=== PATIENT | male | born 1955 | race Caucasian/White ===

== ENCOUNTER → 2019-02-17 13:03 | Outpatient (CLI) | payer BC, SELFPAY ==
[2019-02-17 15:44] LABS: Absolute Lymphocyte Count 1.08 X10^3/uL (0.83-4.51); Absolute Neutrophil Count 4.2 X10^3/uL (2.0-7.7); Basophil# 0.03 X10^3/uL; Basophil% 0.5 % (0-1); Eosinophil# 0.06 X10^3/uL; Hematocrit 42.1 % (40-54); Hemoglobin 13.6 g/dL (13.0-16.5); Lymphocyte # 1.08 X10^3/ul (4.0); Lymphocyte % 18.1 % (19-41); Mean Corp Hgb Conc 32.3 g/dL (32-36); Mean Corpuscular Hgb 30.6 pg (27.0-32.0); Mean Corpuscular Volume 94.8 fL (80-94); Mean Platelet Vol. 11.5 fl (6.2-12.0); Monocyte# 0.58 X10^3/uL; Monocyte% 9.7 % (0-10); NRBC Flagged by Analyzer 0 % (0-5); Neutrophil # 4.21 X10^3/uL (2.7-7.7); Neutrophil % 70.5 % (47-70); Platelet Count 182 K/mm3 (150-450); RBC Distribution Width CV 13.7 % (11.6-14.6); RBC Distribution Width SD 47.7 fl (35.1-43.9); Red Blood Count 4.44 M/mm3 (4.6-6.2)
[2019-02-17 15:58] LABS: AST(SGOT) 21 U/L (15-37); Alanine Aminotransfer ALT/SGPT 40 U/L (16-61); Albumin, Serum 3.8 g/dL (3.2-5.0); Alkaline Phosphatase 72 U/L (45-117); Anion Gap 8 (5-15); BUN 11 mg/dL (7-18); BUN/Creat Ratio 10.4 RATIO (10-20); Calcium,Total 8.8 mg/dL (8.5-10.1); Chloride 105 mmol/L (98-107); Cholesterol 182 mg/dL (200); Creatinine, Serum 1.06 mg/dL (0.70-1.30); EST Glomerular Filtration Rate 75 mL/min (>60); Est Glom Filt Rate - Afr Amer 91 mL/min (>60); Globulin 3.8 g/dL (2.2-4.2); Glucose 107 mg/dL (74-106); High Density Lipoprotein 42 mg/dL; PSA,Total - Annual Screen 2.02 ng/mL (0.00-4.00); Potassium 4.2 mmol/L (3.5-5.1); Protein, Total 7.6 g/dL (6.4-8.2); Sodium Level 139 mmol/L (136-145); Triglycerides 153 mg/dL; Very Low Density Lipoprotein 31 mg/dL (5-40)
[2019-02-17 16:10] LABS: Hemoglobin A1c 5.4 % (4.2-6.3)
== END ==
PROVIDERS: Visit Provider Family Medicine
DX: I10 Essential (primary) hypertension (principal); K50.90 Crohn's disease, unspecified, without complications; Z91.89 Other specified personal risk factors, not elsewhere classified; Z12.5 Encounter for screening for malignant neoplasm of prostate
CPT/HCPCS: 36415; 80053; 80061; 83036; 84153; 85025; G0103

== ENCOUNTER → 2019-03-30 20:28 | Outpatient (CLI) | payer BC, SELFPAY | PROVIDERS: Family Provider Family Medicine; PCP Family Medicine; Referring Provider Family Medicine; Visit Provider Family Medicine | DX: G47.33 Obstructive sleep apnea (adult) (pediatric) (principal) | CPT/HCPCS: 95811 ==

== ENCOUNTER → 2019-04-16 15:57 | Outpatient (CLI) | payer BC, SELFPAY ==
--- NOTE | 2019-04-16 16:02 | CT_ITS ---
STUDY: CT ABDOMEN AND PELVIS WITH CONTRAST REASON FOR EXAM: Male, 64 years old. Crohn's, colostomy, rectum removed RADIATION DOSAGE (If Supplied By Facility): CTDIvol = ( 19.79 ) mGy, DLP = ( 2030.83 ) mGycm TECHNIQUE: Transaxial images were obtained from the dome of the diaphragm to the symphysis pubis without oral contrast. Oral and amp;amp; IV Gastrografin and amp;amp; 100mL Isovue-370 100 was administered. Sagittal and coronal images were reconstructed. Individualized dose optimization techniques were used for this CT. COMPARISON: None. FINDINGS: The visualized lung bases are unremarkable. The visualized portions of the heart are within normal limits. There is decreased attenuation of the liver consistent with steatosis. The gallbladder is contracted. Normal spleen. Normal pancreas. Normal bilateral adrenal glands. Normal right kidney. Normal left kidney. Normal visualized stomach. Normal small intestine. Left lower quadrant colostomy. The appendix is visualized and appears normal. Normal abdominal aorta. Normal inferior vena cava. Normal retroperitoneum. Normal urinary bladder. Normal abdominal wall. Normal osseous structures. CT/Abdomen/Pelvis WITH Contrast IMPRESSION: No evidence of fistula, abscess, or bowel obstruction. Electronically Signed: Jl Anaya MD at 17:37 EDT Tel , Service support ,
[2019-04-16 16:26] LABS: CREATININE FINGERSTICK 1.2 mg/dL (0.70-1.30)
== END ==
PROVIDERS: Family Provider Family Medicine; PCP Family Medicine; Referring Provider Internal Medicine Gastroenterology; Visit Provider Internal Medicine Gastroenterology
DX: K50.90 Crohn's disease, unspecified, without complications (principal); Z01.812 Encounter for preprocedural laboratory examination
CPT/HCPCS: 74177; Q9967

== ENCOUNTER → 2019-05-26 09:00 | Outpatient (CLI) | payer BC, SELFPAY | PROVIDERS: Family Provider Family Medicine; PCP Family Medicine; Referring Provider Family Medicine; Visit Provider Family Medicine | DX: G47.33 Obstructive sleep apnea (adult) (pediatric) (principal) ==

== ENCOUNTER → 2020-02-19 10:19 | Outpatient (CLI) | payer BC, SELFPAY ==
[2020-02-19 12:27] LABS: Absolute Lymphocyte Count 1.28 X10^3/uL (0.83-4.51); Basophil# 0.03 X10^3/uL; Basophil% 0.5 % (0-1); Eosinophil# 0.07 X10^3/uL; Eosinophils% 1.2 % (0-5); Hematocrit 43.3 % (40-54); Hemoglobin 13.9 g/dL (13.0-16.5); Lymphocyte # 1.28 X10^3/ul (4.0); Lymphocyte % 21.5 % (19-41); Mean Corp Hgb Conc 32.1 g/dL (32-36); Mean Corpuscular Hgb 31.3 pg (27.0-32.0); Mean Corpuscular Volume 97.5 fL (80-94); Mean Platelet Vol. 11.8 fl (6.2-12.0); Monocyte# 0.59 X10^3/uL; Monocyte% 9.9 % (0-10); NRBC Flagged by Analyzer 0 % (0-5); Neutrophil # 3.96 X10^3/uL (2.7-7.7); Neutrophil % 66.6 % (47-70); Platelet Count 186 K/mm3 (150-450); RBC Distribution Width CV 13.4 % (11.6-14.6); RBC Distribution Width SD 47.7 fl (35.1-43.9); Red Blood Count 4.44 M/mm3 (4.6-6.2)
[2020-02-19 12:45] LABS: AST(SGOT) 30 U/L (15-37); Alanine Aminotransfer ALT/SGPT 53 U/L (16-61); Albumin, Serum 3.8 g/dL (3.2-5.0); Alkaline Phosphatase 67 U/L (45-117); Anion Gap 7 (5-15); BUN 14 mg/dL (7-18); BUN/Creat Ratio 14.3 RATIO (10-20); Calcium,Total 8.7 mg/dL (8.5-10.1); Chloride 103 mmol/L (98-107); Cholesterol 188 mg/dL (200); Creatinine, Serum 0.98 mg/dL (0.70-1.30); EST Glomerular Filtration Rate 83 mL/min (>60); Est Glom Filt Rate - Afr Amer 100 mL/min (>60); Globulin 3.9 g/dL (2.2-4.2); Glucose 117 mg/dL (74-106); High Density Lipoprotein 41 mg/dL; PSA,Total - Annual Screen 2.34 ng/mL (0.00-4.00); Potassium 4.1 mmol/L (3.5-5.1); Protein, Total 7.7 g/dL (6.4-8.2); Sodium Level 138 mmol/L (136-145); Triglycerides 143 mg/dL; Very Low Density Lipoprotein 29 mg/dL (5-40)
[2020-02-19 12:46] LABS: Hemoglobin A1c 5.3 % (3.8-5.6)
== END ==
PROVIDERS: PCP Family Medicine; Visit Provider Family Medicine
DX: K50.90 Crohn's disease, unspecified, without complications (principal); I10 Essential (primary) hypertension; K21.9 Gastro-esophageal reflux disease without esophagitis; Z83.3 Family history of diabetes mellitus
CPT/HCPCS: 36415; 80053; 80061; 83036; 84153; 85025; G0103

== ENCOUNTER → 2020-04-15 14:12 | Outpatient (CLI) | payer BC, SELFPAY ==
[2020-04-15 17:43] LABS: Hematocrit 44.3 % (40-54); Hemoglobin 14.1 g/dL (13.0-16.5); Mean Corp Hgb Conc 31.8 g/dL (32-36); Mean Corpuscular Volume 100.5 fL (80-94); Mean Platelet Vol. 11.7 fl (6.2-12.0); Platelet Count 174 K/mm3 (150-450); RBC Distribution Width CV 13.2 % (11.6-14.6); RBC Distribution Width SD 48.9 fl (35.1-43.9); Red Blood Count 4.41 M/mm3 (4.6-6.2); White Blood Count 5.5 K/mm3 (4.4-11.0)
[2020-04-15 17:50] LABS: CRP 4.44 mg/L (0.0-3.0)
== END ==
PROVIDERS: PCP Family Medicine; Referring Provider Internal Medicine Gastroenterology; Visit Provider Internal Medicine Gastroenterology
DX: K50.90 Crohn's disease, unspecified, without complications (principal)
CPT/HCPCS: 36415; 85027; 86140

== ENCOUNTER → 2022-03-02 | Outpatient (CLI) | payer MEDICARE, BC, SELFPAY ==
[2022-03-02 10:05] LABS: Absolute Lymphocyte Count 1.74 X10^3/uL (0.83-4.51); Absolute Neutrophil Count 4.4 X10^3/uL (2.0-7.7); Basophil# 0.03 X10^3/uL; Basophil% 0.4 % (0-1); Eosinophil# 0.12 X10^3/uL; Eosinophils% 1.7 % (0-5); Hematocrit 41.5 % (40-54); Hemoglobin 14.1 g/dL (13.0-16.5); Lymphocyte # 1.74 X10^3/ul (0.83-4.51); Lymphocyte % 25.1 % (19-41); Mean Corpuscular Hgb 31.3 pg (27.0-32.0); Monocyte# 0.69 X10^3/uL; Monocyte% 9.9 % (0-10); NRBC Flagged by Analyzer 0 % (0-5); Neutrophil # 4.35 X10^3/uL (2.7-7.7); Neutrophil % 62.8 % (47-70); Platelet Count 180 K/mm3 (150-450); RBC Distribution Width CV 13.1 % (11.6-14.6); RBC Distribution Width SD 43.7 fl (35.1-43.9); Red Blood Count 4.51 M/mm3 (4.6-6.2); White Blood Count 6.9 K/mm3 (4.4-11.0)
[2022-03-02 10:32] LABS: Hemoglobin A1c 6.6 % (3.8-5.6)
[2022-03-02 10:36] LABS: ALB/GLOB Ratio 0.9 RATIO (0.9-2.4); AST(SGOT) 25 U/L (15-37); Alanine Aminotransfer ALT/SGPT 49 U/L (16-61); Albumin, Serum 3.3 g/dL (3.2-5.0); Alkaline Phosphatase 67 U/L (45-117); Anion Gap 6 (5-15); BUN 16 mg/dL (7-18); BUN/Creat Ratio 15.8 RATIO (10-20); Calcium,Total 8.5 mg/dL (8.5-10.1); Chloride 107 mmol/L (98-107); Cholesterol 168 mg/dL (200); Creatinine, Serum 1.01 mg/dL (0.70-1.30); EST Glomerular Filtration Rate 79 mL/min (>60); Est Glom Filt Rate - Afr Amer 95 mL/min (>60); Globulin 3.7 g/dL (2.2-4.2); Glucose 140 mg/dL (74-106); High Density Lipoprotein 34 mg/dL; PSA,Total - Annual Screen 1.84 ng/mL (0.00-4.00); Potassium 4.1 mmol/L (3.5-5.1); Sodium Level 139 mmol/L (136-145); Triglycerides 237 mg/dL; Very Low Density Lipoprotein 47 mg/dL (5-40)
== END | disposition home or self-care (01) ==
PROVIDERS: PCP Family Medicine; Referring Provider Family Medicine; Visit Provider Family Medicine
DX: K50.90 Crohn's disease, unspecified, without complications (principal); I10 Essential (primary) hypertension; K21.9 Gastro-esophageal reflux disease without esophagitis; Z83.3 Family history of diabetes mellitus; Z12.5 Encounter for screening for malignant neoplasm of prostate; E78.5 Hyperlipidemia, unspecified
CPT/HCPCS: 36415; 80053; 80061; 83036; 84153; 85025; G0103

== ENCOUNTER 2022-09-18 09:00 | Outpatient (RCR) | payer MEDICARE, BC, SELFPAY ==
--- NOTE | 2022-07-24 10:17 | HP.PTEVAL ---
Patient's Visit Information GREG KEARNS III is a 67 year old M referred to Physical Therapy by Dr. Maria Luisa Rendon MD with a diagnosis of R rotator cuff strain. Date of Evaluation: 07/24/22 Physical Therapist: Israel Jon, PT, ATC - Visit Plan Frequency: 2-3x /Week Duration: 3-6 weeks Plan: L shoulder strengthening (rotator cuff), scap stab ex's, UBE, and HEP - Subjective Pt reports he was bowling one month ago when his thumb stuck in the ball upon rolling it. Pt reports he experience a severe pain in his R Upper trap at that time. Pt reports the pain was sharp in nature. Pt reports the pain has dpytw5fmg over the last week. Pt is retired at this time. Pt is a computer applications engineer. Pt reports he has a hard time getting to sleep secondary to his shoulder pain. No R UE tingling or numbness at this time. Pt reports lifting overhead causes in creased pain at this time. Pt has not had any diagnostic tests at this time. 0/10 pain while sitting at rest, 3/10 pain at worst (trying to reach for his electric recliner remote pad) - Pain R shoulder Pain Intensity (Out of 10): 0 Pain Intensity Range: 3 - Objective Neuro: B UE sensation is WNL to light touch. B bicipital reflex= 2/3. ROM: B UE's are WNL when compared bilaterally with exception to abduction which is minimally limited. Pt is limited with cervical spine L rot and sidebend are minimally limited. Pt experienced minor increase retraction and protraction in c/s. MMT: R shoulder is grossly 4/5 throughout while L shoulder is 5/5 throughout. Palpation: Pt is sore on the posterior aspect of his R shoulder. No obvious deformity at this time. Special testing: Pos empty can and HK test for impingement - Balance/Special Test Scores Quick DASH Score: 15.9075 - Goals Goal 1:: Decrease R shoulder pain x 50% to aid with sleep Goal Time Frame: 4-6 Weeks Goal 2:: Increase R shoulder ROM to WNL to be equal with L shoulder Goal Time Frame: 4-6 Weeks Goal 3:: Increase R shoulder strength x 1 grade to aid with return to bowling without limitation Goal Time Frame: 4-6 Weeks Goal 4:: I with HEP Goal Time Frame: 4-6 Weeks - Rehabilitation Potential Physical Therapy Diagnosis: Pt has R shoulder pain, weakness, and limited ROM secondary to R shoulder rotator cuff strain Rehabilitation Potential: Good - Anticipated Interventions Patient/Client Instruction: Educate patient on: Condition, Plan of Care For the Purpose of:: To improve self management Therapeutic Exercise to Include: Strength training, Endurance training, Scapular Strength/Stabilization For the Purpose of:: To decrease pain, To increase ROM, To improve muscle performance and motor function Cryotherapy (ice pack, ice massage): Yes For the Purpose of:: To decrease pain Thank you for the opportunity to evaluate your patient. For Medicare and Medicare HMO plans, please review the plan of care and approve it. It will need to be FAXED BACK to us at [phone] for Medicare purposes. For Medicare only, by signing this I certify the plan of care. Please let me know if there are questions or concerns regarding this plan of care. Physician Signature: Date:
--- NOTE | 2022-08-21 09:32 | HP.PTREVAL ---
Dr. Maria Luisa Rendon MD, It has been my pleasure to treat GREG KEARNS III over the last 8 visits for R rotator cuff strain. Please see the progress note below for an update on the physical therapy plan of care! Subjective: I feel good, but I havent even tried bowling yet Objective/Function: R shoulder pain is consistently 1/10. R shoulder ROM: flex and abd= 140, ER= 65 degrees. R shoulder MMT: flex and abd= 5/5, ER and IR= 4/5. Pt is progressing well with strength and ROM, still lacks strength with IR and ER Plan Plan: Follow up or discharge in 1 month Balance/Gait/Functional tests - Balance/Special Test Scores Quick DASH Score: 4.5450 Goals Goal 1:: Decrease R shoulder pain x 50% to aid with sleep Goal Time Frame: 4-6 Weeks Goal Progress: Goal Met Goal 2:: Increase R shoulder ROM to WNL to be equal with L shoulder Goal Time Frame: 4-6 Weeks Goal Progress: Goal Met Goal 3:: Increase R shoulder strength x 1 grade to aid with return to bowling without limitation Goal Time Frame: 4-6 Weeks Goal Progress: Progressing Goal 4:: I with HEP Goal Time Frame: 4-6 Weeks Goal Progress: Goal Met Anticipated Interventions Patient/Client Instruction: Educate patient on: Condition, Plan of Care For the Purpose of:: To improve self management Therapeutic Exercise to Include: Strength training, Endurance training, Scapular Strength/Stabilization For the Purpose of:: To decrease pain, To increase ROM, To improve muscle performance and motor function Cryotherapy (ice pack, ice massage): Yes For the Purpose of:: To decrease pain Please do not hesitate to contact me at [phone] by phone or if you have questions or concerns regarding this new plan of care! Sincerely, Israel Jon, PT, ATC
--- NOTE | 2022-09-18 09:31 | HP.PTREVAL ---
Dr. Maria Luisa Rendon MD, It has been my pleasure to treat GREG KEARNS III over the last 9 visits for R rotator cuff strain. Please see the progress note below for an update on the physical therapy plan of care! Subjective: I barely have any pain now Objective/Function: R shoulder pain 07/24. No sleep limitations at this time secondary to pain. R shoulder ROM is WNL compared bilaterally to L shoulder. R shoulder MMT: 5/5 throughout. Pt is I with HEP. Rx goals achieved Plan Plan: Discharge to [facility] Balance/Gait/Functional tests - Balance/Special Test Scores Quick DASH Score: 2.2725 Goals Goal 1:: Decrease R shoulder pain x 50% to aid with sleep Goal Time Frame: 4-6 Weeks Goal Progress: Goal Met Goal 2:: Increase R shoulder ROM to WNL to be equal with L shoulder Goal Time Frame: 4-6 Weeks Goal Progress: Goal Met Goal 3:: Increase R shoulder strength x 1 grade to aid with return to bowling without limitation Goal Time Frame: 4-6 Weeks Goal Progress: Goal Met Goal 4:: I with HEP Goal Time Frame: 4-6 Weeks Goal Progress: Goal Met Anticipated Interventions Patient/Client Instruction: Educate patient on: Condition, Plan of Care For the Purpose of:: To improve self management Therapeutic Exercise to Include: Strength training, Endurance training, Scapular Strength/Stabilization For the Purpose of:: To decrease pain, To increase ROM, To improve muscle performance and motor function Cryotherapy (ice pack, ice massage): Yes For the Purpose of:: To decrease pain Please do not hesitate to contact me at [phone] by phone or if you have questions or concerns regarding this new plan of care! Sincerely, Israel Jon, PT, ATC
--- NOTE | 2022-09-18 09:32 | HP.PTDCSUM ---
It has been my pleasure to treat GREG KEARNS III referred by Dr. Maria Luisa Rendon MD, with the diagnosis of R rotator cuff strain for a total of 9 visit(s). Discharge Date: Please see the following information for a summary of their discharge status. Subjective: I barely have any pain now R shoulder Pain Intensity (Out of 10): 1 % Improvement: 80 Objective/Function: R shoulder pain /10. No sleep limitations at this time secondary to pain. R shoulder ROM is WNL compared bilaterally to L shoulder. R shoulder MMT: 5/5 throughout. Pt is I with HEP. Rx goals achieved Goal 1:: Decrease R shoulder pain x 50% to aid with sleep Goal Progress: Goal Met Goal 2:: Increase R shoulder ROM to WNL to be equal with L shoulder Goal Progress: Goal Met Goal 3:: Increase R shoulder strength x 1 grade to aid with return to bowling without limitation Goal Progress: Goal Met Goal 4:: I with HEP Goal Progress: Goal Met Plan: Discharge to HEP If there are questions or concerns regarding this patient's physical therapy, please feel free to call me at [phone]. Thank you for the referral of this patient. Sincerely, Israel Jon, PT, ATC Balance/Gait/Functional tests - Balance/Special Test Scores Quick DASH Score: 2.2725
== END 2022-09-18 14:28 | disposition home or self-care (01) ==
LOC: PT 09:00
PROVIDERS: PCP Family Medicine; Referring Provider Family Medicine; Visit Provider Family Medicine
DX: M75.81 Other shoulder lesions, right shoulder
CPT/HCPCS: 97110; 97161; 97164

== ENCOUNTER → 2023-03-06 | Outpatient (CLI) | payer MEDICARE, BC, SELFPAY ==
[2023-03-06 09:44] LABS: Absolute Lymphocyte Count 1.51 X10^3/uL (0.83-4.51); Absolute Neutrophil Count 3.1 X10^3/uL (2.0-7.7); Basophil# 0.04 X10^3/uL; Basophil% 0.8 % (0-1); Eosinophil# 0.17 X10^3/uL; Eosinophils% 3.2 % (0-5); Hematocrit 41.8 % (40-54); Hemoglobin 14.1 g/dL (13.0-16.5); Lymphocyte # 1.51 X10^3/ul (0.83-4.51); Lymphocyte % 28.4 % (19-41); Mean Corp Hgb Conc 33.7 g/dL (32-36); Mean Corpuscular Hgb 31.3 pg (27.0-32.0); Mean Corpuscular Volume 92.7 fL (80-94); Mean Platelet Vol. 10.9 fl (6.2-12.0); Monocyte# 0.52 X10^3/uL; Monocyte% 9.8 % (0-10); NRBC Flagged by Analyzer 0 % (0-5); Neutrophil # 3.07 X10^3/uL (2.7-7.7); Neutrophil % 57.6 % (47-70); Platelet Count 180 K/mm3 (150-450); RBC Distribution Width CV 13.4 % (11.6-14.6); RBC Distribution Width SD 45.8 fl (35.1-43.9); Red Blood Count 4.51 M/mm3 (4.6-6.2); White Blood Count 5.3 K/mm3 (4.4-11.0)
[2023-03-06 10:09] LABS: Hemoglobin A1c 6.6 % (3.8-5.6)
[2023-03-06 10:14] LABS: Microalbumin,Random Urine 7.9 mg/L (NO RANGE EST.); Microalbumin:Creatinine Ratio 6.3 mg/g CRE (<30 mg/g CRE)
[2023-03-06 10:22] LABS: AST(SGOT) 27 U/L (15-37); Alanine Aminotransfer ALT/SGPT 52 U/L (16-61); Albumin, Serum 3.4 g/dL (3.2-5.0); Alkaline Phosphatase 67 U/L (45-117); Anion Gap 5 (5-15); BUN 12 mg/dL (7-18); BUN/Creat Ratio 12.6 RATIO (10-20); Calcium,Total 8.9 mg/dL (8.5-10.1); Chloride 106 mmol/L (98-107); Cholesterol 190 mg/dL (200); Creatinine, Serum 0.95 mg/dL (0.70-1.30); EST Glomerular Filtration Rate 84 mL/min (>60); Est Glom Filt Rate - Afr Amer 102 mL/min (>60); Globulin 3.4 g/dL (2.2-4.2); Glucose 142 mg/dL (74-106); High Density Lipoprotein 40 mg/dL; Potassium 4.2 mmol/L (3.5-5.1); Protein, Total 6.8 g/dL (6.4-8.2); Sodium Level 139 mmol/L (136-145); Triglycerides 220 mg/dL; Very Low Density Lipoprotein 44 mg/dL (5-40)
== END | disposition home or self-care (01) ==
PROVIDERS: PCP Family Medicine; Referring Provider Student in an Organized Health Care Education/Training Program; Visit Provider Student in an Organized Health Care Education/Training Program
DX: Z01.810 Encounter for preprocedural cardiovascular examination (principal); K50.90 Crohn's disease, unspecified, without complications; E11.9 Type 2 diabetes mellitus without complications; Z01.818 Encounter for other preprocedural examination; I10 Essential (primary) hypertension; K21.9 Gastro-esophageal reflux disease without esophagitis; E78.5 Hyperlipidemia, unspecified; K76.0 Fatty (change of) liver, not elsewhere classified
CPT/HCPCS: 36415; 80053; 80061; 82043; 82570; 83036; 85025; 93005

== ENCOUNTER → 2024-04-30 | Outpatient (CLI) | payer MEDICARE, BC, SELFPAY ==
[2024-04-30 12:24] LABS: Absolute Lymphocyte Count 1.21 X10^3/uL (0.83-4.51); Absolute Neutrophil Count 4.5 X10^3/uL (2.0-7.7); Basophil# 0.04 X10^3/uL; Basophil% 0.6 % (0-1); Eosinophils% 1.5 % (0-5); Hematocrit 40.6 % (40-54); Hemoglobin 13.4 g/dL (13.0-16.5); Lymphocyte # 1.21 X10^3/ul (0.83-4.51); Lymphocyte % 18.6 % (19-41); Mean Corpuscular Hgb 30.4 pg (27.0-32.0); Mean Corpuscular Volume 92.1 fL (80-94); Mean Platelet Vol. 11.1 fl (6.2-12.0); Monocyte# 0.67 X10^3/uL; Monocyte% 10.3 % (0-10); NRBC Flagged by Analyzer 0 % (0-5); Neutrophil # 4.46 X10^3/uL (2.7-7.7); Neutrophil % 68.7 % (47-70); Platelet Count 184 K/mm3 (150-450); RBC Distribution Width CV 13.5 % (11.6-14.6); RBC Distribution Width SD 45.8 fl (35.1-43.9); Red Blood Count 4.41 M/mm3 (4.6-6.2); White Blood Count 6.5 K/mm3 (4.4-11.0)
[2024-04-30 12:39] LABS: Microalbumin:Creatinine Ratio 12.4 mg/g CRE (<30 mg/g CRE)
[2024-04-30 12:53] LABS: ALB/GLOB Ratio 0.9 RATIO (0.9-2.4); AST(SGOT) 28 U/L (15-37); Alanine Aminotransfer ALT/SGPT 50 U/L (16-61); Albumin, Serum 3.4 g/dL (3.2-5.0); Alkaline Phosphatase 80 U/L (45-117); Anion Gap 7 (5-15); BUN 17 mg/dL (7-18); BUN/Creat Ratio 16.2 RATIO (10-20); Chloride 108 mmol/L (98-107); Cholesterol 168 mg/dL (200); Creatinine, Serum 1.05 mg/dL (0.70-1.30); EST Glomerular Filtration Rate 75 mL/min (>60); Est Glom Filt Rate - Afr Amer 91 mL/min (>60); Globulin 3.8 g/dL (2.2-4.2); Glucose 170 mg/dL (74-106); High Density Lipoprotein 46 mg/dL; Potassium 4.3 mmol/L (3.5-5.1); Protein, Total 7.2 g/dL (6.4-8.2); Sodium Level 140 mmol/L (136-145); Triglycerides 124 mg/dL; Very Low Density Lipoprotein 25 mg/dL (5-40)
== END | disposition home or self-care (01) ==
LOC: BFHLAB 09:09
PROVIDERS: PCP Family Medicine; Referring Provider Family Medicine; Visit Provider Family Medicine
DX: K50.90 Crohn's disease, unspecified, without complications (principal); E11.9 Type 2 diabetes mellitus without complications; I10 Essential (primary) hypertension; K21.9 Gastro-esophageal reflux disease without esophagitis; E78.5 Hyperlipidemia, unspecified; K76.0 Fatty (change of) liver, not elsewhere classified
CPT/HCPCS: 36415; 80053; 80061; 82043; 82570; 85025

== ENCOUNTER 2024-11-12 06:25 | Day surgery (SDC) | payer MEDICARE, BC, SELFPAY ==
--- NOTE | 2024-11-11 | MISC_PTH ---
PATIENT: GREG KEARNS III LOC: [facility] – [place] U#:[id number] AGE/SX: 69/M ROOM: RE11/12/[address]: Dr. Jonas Larsen MD : 1955 BED: DIS: 11/12/2024 SPEC #: [id number] RECD: 11/12/24 10:35 STATUS: KORY RUANO #: [id number] JOVANNY: 11/11/24 00:[address]: Jonas Larsen DEPT: SURGICAL PATHOLOGY RECD BY: Joselito Echavarria ENTERED: 11/12/24 10:38 SP TYPE: MISC BLANCA DR: Dr. Maria Luisa Rendon MD Tissues: A - Nail of finger, NOS Procedures: Surgery Specimen Level I Special Stain Group I GMS Stain (control) HEADER OPERATION: Excision nailbed deformity with closure, thumb PRE-OP DIAGNOSIS: Finger pain, right, acquired deformity of nail of finger, secondary to trauma TISSUE SUBMITTED: A- Right ectoptic nail tissue MICROSCOPIC DIAGNOSIS A. Right nail, ectopic tissue, excision: * Nail plate consistent with ectopic nail - see Comment. * A PASD stain is negative for fungal organisms. COMMENT Selected slides/images were reviewed in intradepartmental consultation by Dr Katina Morris (dermatopathology division, [facility]). MICROSCOPIC DESCRIPTION Slides are reviewed. All matched controls reacted appropriately. These tests were developed and their performance characteristics determined by [facility]. They may not have been cleared or approved by the U.S. Food and Drug Administration. The FDA has determined that such clearance or approval is not necessary.? The above immunohistochemical/dualISH?markers are ordered and reviewed by the Pathologist. GROSS DESCRIPTION A. Received in formalin in a container labeled with the patient's name, date of , and right ectopic nail tissue is an unoriented and irregular fragment of dhaliwal possible skin measuring 0.8 x 0.3 cm with a depth of 0.5 cm. The possible epidermis exhibits a 0.3 x 0.1 x 0.1 cm nodule, possibly consistent with a small portion of nail. This abuts the peripheral margin. The remaining skin is wrinkled, but otherwise unremarkable. The deep margin is inked green, and it is trisected to reveal that the possible nail is titus and softened, confined to the epidermis. Submitted entirely in A1. [facility] 11-12-2024 CPT:95042, 24124
[2024-11-12 06:50] VITALS: BP 145/78; PULSE 62; RESP 16; TEMP 36.6; O2SAT 97; BMI 28.3
[2024-11-12] MEDS: Clindamycin HCl 150 MG Capsule 450 MG PO (06:56)
[2024-11-12 07:21] VITALS: BP 115/70; BP 132/79; O2SAT 94; O2SAT 95; O2SAT 96; O2SAT 97
--- NOTE | 2024-11-12 07:36 | PCM.HP.STD ---
HPI - General HPI Narrative Reese Hercules is a delightful 69-year-old male with history of type 2 diabetes (A1c of 7.3) as well as Crohn's disease (has an ostomy, does not take any immunosuppressants) who presents today for nail deformity on the right thumb secondary to a trauma from 2 decades ago. Patient reports that he had a laceration/nailbed injury on the right thumb that was repaired over 20 years ago. He has had a nail deformity ever since on the radial side of his thumb. As the nail grows in this area, it catches on things and becomes irritated and red and painful. He is not a smoker. No personal or family history of bleeding or clotting problems. Current Encounter (DATE OF SURGERY H&P UPDATE): I saw and examined the patient this morning in pre-operative holding. We discussed risks and benefits of today's surgery and they would like to proceed. NO CHANGE in health history since last seen and evaluated. Ready to proceed with surgery. [facility] Medical History Kidney stone Osteopenia GERD (gastroesophageal reflux disease) Hypertension Gastrointestinal problem Diabetes History of blood transfusion Bone fracture Anemia Home Medications ?Medication ?Instructions ?Recorded ?Last Taken ?Type flaxseed oil 1,000 mg capsule 1,000 mg PO QDAY 11/10/24 Unknown History lisinopril 20 mg tablet 20 mg PO QDAY 11/10/24 11/12/24 06:00 History multivitamin with minerals-folic 1 tab PO DAILY 11/10/24 Unknown History acid 200 mcg chewable tablet omeprazole 40 mg capsule,delayed 40 mg PO QDAY 11/10/24 Unknown History release sitagliptin phosphate 50 mg tablet 50 mg PO QDAY 11/10/24 Unknown History (Januvia) triamcinolone acetonide 55 mcg 2 spray intranasal QDAY 11/10/24 11/12/24 06:00 History nasal spray aerosol (Nasacort) Allergy/AdvReac Type Severity Reaction Status Date / Time Penicillins (PCN) Allergy Mild NEEDS Verified 11/12/24 06:47 FOLLOW-UP trovafloxacin (From Trovan) Allergy Mild Other Verified 11/12/24 06:47 Family History Sister Diabetes Mother Diabetes Father Heart disease Surgical History History of colectomy Social History Smoking Status: Never smoker alcohol intake: current substance use type: does not use additional social history: pt denies using aspirin and ibuprofen Vital Signs Vital Signs Vital Signs: 11/12/24 06:50 11/12/24 06:50 Temperature 97.8 F Temperature Source Temporal Pulse Rate 62 Respiratory Rate 16 Respiratory Pattern Normal Blood Pressure 145/78 H Blood Pressure Mean 100 Blood Pressure Source Monitor Blood Pressure Position Sitting Blood Pressure Location Left Arm Pulse Ox 97 Oxygen Delivery Method Room Air Weight Weight: 197 lb Body Mass Index (BMI) 28.3 Physical Exam Narrative R Upper Extremity Inspection: Small spicule of apparent nail growth from the perionychium on the radial side of the thumb. No drainage or signs of infection. There is a scar immediately adjacent and proximal to the apparent nail. Palpation: Area is tender to palpation where there is apparent nail growth. Motor: Able to bend and extend all MP, PIP, and DIP joints. Sensory: Intact to light touch on the radial and ulnar borders. Vascular: Finger tips are warm and well perfused with <2 second capillary refill. Assessment & Plan Assessment/Plan (1) Acquired deformity of nail of finger: PLAN: I talked to the patient about removal of the ectopic nailbed tissue that is growing the nail (germinal matrix) in this location. This would require excision of this area followed by either wound care or closure. Patient understands the risks of wound healing problems, bleeding, infection, damage to surrounding structures, failure to obtain the desired result and return to the nail, as well as nail deformities in the main nailbed of the thumb. He would like to proceed with excision. He understands that his diabetes needs to continue to be under control so as to mitigate the risks of wound healing complications. He is accepting of the risks and would like to proceed. Plan for excision of ectopic nail tissue with closure under local in the operating room. CPT codes for insurance prior authorization are as follows: [id number], [id number] INTERVAL H&P PLAN, DATE OF SURGERY: We will proceed with surgery today.
--- NOTE | 2024-11-12 07:49 | OP.PCM_ITS ---
Operative Report (Standard) Operative Information Date of Procedure: 11/12/24 Pre-Operative Diagnosis: Right thumb nailbed deformity Post-Operative Diagnosis: Same Surgery/Procedure Performed: 1) Excision of right thumb ectopic nailbed deformity (radial side, perionychium), 0.2 x 0.5 cm (CPT: 02002) 2) Intermediate closure right thumb wound, 0.5 cm (CPT: 47017) centrifugal operator: No Type of Anesthesia: Local (6 cc of 50-50 mixture of 1% lidocaine and 0.25% Marcaine) RN Documented Start/Stop Times: Operation Date: 11/12/24 07:30 Case Time Into Pre-Op 11/12/24 06:49 Into Room 11/12/24 07:38 Procedure Start 11/12/24 07:54 Procedure End 11/12/24 08:06 Out of Room 11/12/24 08:11 Into Phase II Recovery 11/12/24 08:18 Out of Phase II 11/12/24 08:32 Anesthesia End Procedure Start Time: 07:54 Procedure Stop Time: 08:06 Select all DRAINS/GRAFTS/IMPLANTS that apply: None Estimated Blood Loss: Minimal Specimen collected: Yes Description of specimen(s) removed: Ectopic nail that was excised Description of surgery: Indications: Patient is a 69-year-old male with ectopic nail growth and nail deformity secondary to trauma. Presents today for excision and closure. I talked him about the risks, benefits, and alternatives to surgery, including infection, damage to surrounding structures, failure to obtain desired result, recurrence of the nail deformity, and need for revision. He elected to proceed with the procedure. Procedure details: Patient was correctly identified in preoperative holding and marked. He was ta derrek back to the operating room where he was administered local anesthesia as above-noted local solution was injected. He was prepped and draped in sterile fashion. All proper timeouts were performed. A turnicot was applied with care taken to remove at the end of the case. In the area of ectopic nail growth/deformity on the radial side of the thumb, a 15 blade scalpel was used to excise the skin and area of ectopic nail tissue full-thickness down to the distal phalanx bone in an ellipse that measured 0.2 x 0.5 cm. This was sent to pathology. The base of the wound was debrided with a curette to remove all other ectopic nail tissue, with extensive cleaning and removal of particulate matter to debride the area and prevent nail regrowth. The wound was then cauterized with bipolar electrocautery (turnicot removed). The wound was irrigated with copious amounts normal saline. Given that there was extensive particulate matter removal (ectopic nail debris and extensive cleaning) with exposure of the underlying distal phalanx bone, an intermediate closure was indicated that was 0.5 cm. This was performed with a 4-0 nylon interrupted suture. A Band-Aid was applied. Patient tolerated the procedure well. He was taken to the PACU in stable condition. Postoperative plan: Follow-up in 1 week for examination of the wound bed and likely suture removal and to review pathology. Plan for 1 week of doxycycline. Surgical Findings: Ectopic nail tissue excised down to the bone and was delivered in 1 piece Complications Complications: No Admit VTE Documentation VTE Mechan Device Prophylaxis: SCD's
[2024-11-12] MEDS: Bupivacaine 0.25% 30 ML Vial (07:54)
[2024-11-12] MEDS: Lidocaine 1% (20 ml mdv) 20 ML Vial (07:54)
[2024-11-12 08:31] VITALS: BP 130/85; PULSE 55; RESP 16; TEMP 36.6; O2SAT 95
== END 2024-11-12 08:32 | disposition home or self-care (01) ==
LOC: SDC 06:28 → AC 06:29
PROVIDERS: PCP Family Medicine; Referring Provider Surgery Plastic and Reconstructive Surgery; Visit Provider Surgery Plastic and Reconstructive Surgery
PROC: (CPT 11750; principal; 2024-11-12 07:20)
DX: L60.8 Other nail disorders (principal); K50.90 Crohn's disease, unspecified, without complications; E11.9 Type 2 diabetes mellitus without complications; L90.5 Scar conditions and fibrosis of skin; I10 Essential (primary) hypertension; K21.9 Gastro-esophageal reflux disease without esophagitis; Z79.899 Other long term (current) drug therapy
CPT/HCPCS: 11750; 88300

== ENCOUNTER 2024-11-19 08:50 | Outpatient (RCR) | payer SELFPAY | END 2024-12-12 23:59 | LOC: NS 08:50 | PROVIDERS: PCP Family Medicine | DX: Z71.3 Dietary counseling and surveillance (principal) ==

== ENCOUNTER → 2025-05-04 | Outpatient (CLI) | payer MEDICARE, BC, SELFPAY ==
[2025-05-04 13:19] LABS: Hematocrit 43.4 % (40-54); Hemoglobin 14.7 g/dL (13.0-16.5); Immature Granulocytes Count 0.010 X10^3/uL (0.0-0.0); Mean Corp Hgb Conc 33.9 g/dL (32-36); Mean Corpuscular Volume 89.1 fL (80-94); Mean Platelet Vol. 11.1 fl (6.2-12.0); NRBC Flagged by Analyzer 0 % (0-5); Platelet Count 192 K/mm3 (150-450); RBC Distribution Width CV 13.4 % (11.6-14.6); RBC Distribution Width SD 43.9 fl (35.1-43.9); Red Blood Count 4.87 M/mm3 (4.6-6.2); White Blood Count 5.6 K/mm3 (4.4-11.0)
[2025-05-04 14:04] LABS: Creatinine, Urine (random) 239.00 mg/dL (39.00-259.00); Microalbumin,Random Urine 15.6 mg/L (<20 mg/L)
[2025-05-04 18:28] LABS: AST(SGOT) 30 U/L (<=37); Alanine Aminotransfer ALT/SGPT 36 U/L (<=46); Albumin, Serum 4.3 g/dL (3.4-4.8); Alkaline Phosphatase 78 U/L (40-129); Anion Gap 13 (5-15); BUN 13 mg/dL (4-19); BUN/Creat Ratio 14.3 RATIO (10-20); Calcium,Total 9.6 mg/dL (7.6-11.0); Carbon Dioxide 25.5 mmol/L (21.0-32.0); Chloride 102 mmol/L (98-108); Cholesterol 170 mg/dL (<=200); Globulin 3.2 g/dL (2.2-4.2); Glucose 131 mg/dL (70-99); Low Density Lipoprotein Calc. 108 mg/dL; PSA,Total - Annual Screen 2.42 ng/mL (0.02-4.00); Potassium 4.3 mmol/L (3.3-5.1); Triglycerides 129 mg/dL; Very Low Density Lipoprotein 26 mg/dL (5-40); cholesterol:hdl ratio screen 4.37
== END | disposition home or self-care (01) ==
LOC: LABSPEC 12:51 → MTLAB 18:29
PROVIDERS: PCP Family Medicine; Referring Provider Family Medicine; Visit Provider Family Medicine
DX: Z12.5 Encounter for screening for malignant neoplasm of prostate (principal); K50.90 Crohn's disease, unspecified, without complications; E11.9 Type 2 diabetes mellitus without complications; K21.9 Gastro-esophageal reflux disease without esophagitis; E78.5 Hyperlipidemia, unspecified; K76.0 Fatty (change of) liver, not elsewhere classified; I10 Essential (primary) hypertension
CPT/HCPCS: 36415; 80053; 80061; 82043; 82570; 84153; 85025; G0103